=== PATIENT | female | born 1970 | race African-American/Black ===

== ENCOUNTER 2018-05-19 09:21 | Outpatient (CLI) | payer OTHER ==
--- NOTE | 2018-05-19 11:38 | ULT ---
COMPLETE ABDOMINAL ULTRASOUND: Comparison: None. History: Diffuse abdominal pain, positive Rivas's sign on physical examination. Technique: Multiplanar grayscale and color doppler images were obtained in a complete abdominal ultra sound. FINDINGS: The liver is normal in echogenicity without focal lesions or intrahepatic duct dilatation. Shadowing gallstones are seen in the gallbladder. No gallbladder wall thickening is seen. There is a small amou nt of pericholecystic fluid. The common bile duct is normal measuring 3 mm. Aorta and inferior vena cava are normal in caliber. The visualized portions of the pancreas are unrem arkable. The spleen is normal in echogenicity without focal lesion and measures 7.5 cm in length. Both kidneys are normal in echogencity without hydronephrosis or calculi and measure 9.5 and 9.0 cm i n length on the right and left respectively. IMPRESSION: 1. Cholelithiasis. POS: BLANCO
--- NOTE | 2018-05-19 12:02 | ULT ---
PELVIC ULTRASOUND: Date: 05/19/18 COMPARISON: None. HISTORY: Right lower quadrant abdominal/pelvic pain. Patient had a hysterectomy 20 years ago and is unsure if they removed her ovaries. TECHNIQUE: Multiplanar Brush scale and color Doppler images were obtained in a transvaginal and transabdominal pe lvic ultrasound. FINDINGS: The uterus has been removed. No free fluid is seen in the pelvis. Neither ovary is visualized. No abn ormality of the urinary bladder is seen. IMPRESSION: Unremarkable exam. POS: KELLIE
== END 2018-05-19 09:22 | disposition home or self-care (01) ==
LOC: ULT 09:21
PROVIDERS: ATTEND Family Medicine
DX: R10.31 Right lower quadrant pain (principal); K80.20 Calculus of gallbladder without cholecystitis without obstruction; Z90.710 Acquired absence of both cervix and uterus; Z86.39 Personal history of other endocrine, nutritional and metabolic disease
CPT/HCPCS: 76700; 76856

== ENCOUNTER 2018-07-05 08:59 | Outpatient (CLI) | payer OTHER ==
--- NOTE | 2018-07-06 12:05 | MMO ---
BILATERAL MAMMOGRAMS: History: Screening mammography. Comparison: None. FINDINGS: Baseline study. Scattered fibroglandular densities. Intermammillary lymph node right breast. Metallic marker at superior aspect right breast indicates skin scar. No dominant mass or suspicious calcifica tions. This study is interpreted with the assistance of computer aided detection. IMPRESSION: BIRADS category 2 - benign findings. Suggest routine follow up. POS: KELLIE
== END 2018-07-05 09:00 | disposition home or self-care (01) ==
LOC: SCSMAMMO 08:59
PROVIDERS: ATTEND Family Medicine
DX: Z12.31 Encounter for screening mammogram for malignant neoplasm of breast (principal)
CPT/HCPCS: 77067